=== PATIENT | male | born 2000 | race Two or more races ===

== ENCOUNTER → 2024-07-18 | Outpatient (CLI) | payer OTHER ==
[~2024-07-18] MED LIST: ISOVUE-300 61% 100ML VIAL As Ordered ONE; LIDOCAINE 1% MDV 20ML VIAL As Ordered ONE; PROHANCE 279.3MG/ML 5ML VIAL As Ordered ONE
== END ==
LOC: M RAD 09:00
PROVIDERS: ATTEND Physician Assistant Surgical
DX: M24.111 Other articular cartilage disorders, right shoulder (principal); S46.011A Strain of muscle(s) and tendon(s) of the rotator cuff of right shoulder, initial encounter; X58.XXXA Exposure to other specified factors, initial encounter; Y92.9 Unspecified place or not applicable
CPT/HCPCS: 23350; 73223; 77002; A9576; Q9967

== ENCOUNTER 2024-08-04 04:57 | Inpatient (IN) | payer OTHER ==
[~2024-08-04] VITALS: Ht 172.7 cm; Wt 77.5 kg
[2024-08-04 05:46] LABS: CARBOXYHEMOGLOBIN 1.5 % (0.0-1.5); VENOUS BASE EXCESS -1.2 (-2.0-2.0); VENOUS HCO3 23.5 MMOL/L (23.0-27.0); VENOUS O2 SATURATION 97.6 % (60.0-80.0); VENOUS PARTIAL PRESSURE CO2 39.6 mmHg (38.0-50.0); VENOUS PARTIAL PRESSURE O2 104.6 mmHg (30.0-50.0); VENOUS PH 7.392 UNITS (7.330-7.430); VENOUS STANDARD HCO3 23.5 MMOL/L; VENOUS TOTAL CO2 24.8 MMOL/L (24.0-28.0)
[2024-08-04 05:51] LABS: HEMOGLOBIN 15.3 g/dl (13.5-17.5); MEAN CORPUSCULAR HEMOGLOBIN 30.1 pg (27.0-33.0); MEAN CORPUSCULAR HGB CONC 34.8 g/dl (32.0-36.5); MEAN CORPUSCULAR VOLUME 86.6 fl (80.0-96.0); PLATELET COUNT, AUTOMATED 239 10^3/uL (150-450); RED BLOOD COUNT 5.08 10^6/uL (4.30-6.10); WHITE BLOOD COUNT 5.5 10^3/uL (4.0-10.0)
[2024-08-04 06:33] LABS: ETHYL ALCOHOL (ETHANOL) < 0.003 % (0.000-0.010)
[2024-08-04 06:34] LABS: ALBUMIN 4.4 G/DL (3.2-5.2); ALKALINE PHOSPHATASE 50 U/L (40-129); ALT/SGPT 19 U/L (7.0-40); AST/SGOT 8 U/L (<34); BILIRUBIN,DIRECT 0.3 MG/DL (<0.4); BLOOD UREA NITROGEN 12 MG/DL (9-23); CALCIUM LEVEL 9.3 MG/DL (8.5-10.1); CARBON DIOXIDE LEVEL 25 MMOL/L (20-31); CHLORIDE LEVEL 106 MMOL/L (98-107); CREATININE FOR GFR 0.89 MG/DL (0.70-1.30); GLOMERULAR FILTRATION RATE > 60.0 (>60); GLUCOSE, FASTING 89 MG/DL (60-100); POTASSIUM SERUM 3.8 MMOL/L (3.5-5.1); SALICYLATE LEVEL < 3.0 MG/DL (<30); SODIUM LEVEL 141 MMOL/L (136-145); TOTAL PROTEIN 6.9 G/DL (5.7-8.2)
[2024-08-04 06:36] LABS: THYROID STIMULATING HORMONE 4.294 uIU/ML (0.55-4.78)
[2024-08-04] MEDS ORDERED: HOME MED LIST COMPLETE! XX SCH (07:20)
[2024-08-04 07:50] LABS: AMPHETAMINES LEVEL URINE NEGATIVE (NEGATIVE)
[2024-08-04 07:51] LABS: BARBITURATES URINE NEGATIVE (NEGATIVE); BENZODIAZEPINES URINE NEGATIVE (NEGATIVE); CANNABINOIDS URINE NEGATIVE (NEGATIVE); COCAINE METABOLITE URINE NEGATIVE (NEGATIVE); METHADONE URINE NEGATIVE (NEGATIVE); OPIATES URINE NEGATIVE (NEGATIVE); PHENCYCLIDINE URINE NEGATIVE (NEGATIVE)
[2024-08-04 20:08] LABS: APPEARANCE, URINE CLEAR (CLEAR); BACTERIA, URINE AUTO NEGATIVE (NEGATIVE); BILIRUBIN, URINE AUTO NEGATIVE (NEGATIVE); BLOOD, URINE BLOOD NEGATIVE (NEGATIVE); COLOR, URINE YELLOW (YELLOW); GLUCOSE, URINE (UA) AUTO NEGATIVE (NEGATIVE); KETONE, URINE AUTO NEGATIVE (NEGATIVE); LEUKOCYTE ESTERASE, URINE AUTO NEGATIVE (NEGATIVE); MUCUS, URINE SMALL (NEGATIVE); NITRITE, URINE AUTO NEGATIVE (NEGATIVE); PROTEIN, URINE AUTO NEGATIVE (NEGATIVE); RBC, URINE AUTO 0 /HPF (0-3); SPECIFIC GRAVITY URINE AUTO 1.018 (1.002-1.035); SQUAMOUS EPITHELIAL CELL UR AU 0 /HPF (0-6); UROBILINOGEN, URINE AUTO 0.2 mg/dL (0.0-2.0); WBC, URINE AUTO 1 /HPF (0-3)
[2024-08-05] MEDS ORDERED: MAALOX 30 ML SUSP *UDC PO PRN (16:20)
[2024-08-05] MEDS ORDERED: LORazepam 1 MG TAB PO PRN (16:20)
[2024-08-05] MEDS ORDERED: MOM 30ML SUSPENSION UDC PO PRN (16:20)
[2024-08-05] MEDS ORDERED: ACETAMINOPHEN 325 MG TAB PO PRN (16:20)
[2024-08-05 18:55] VITALS: BP 118/69; TEMP 98.4; O2SAT 100
[2024-08-06 06:37] VITALS: BP 118/64; TEMP 97.9; O2SAT 100
[2024-08-06] MEDS: NICOTINE 14 MG/24 HR TRANSDERMAL TD SCH (09:13)
[2024-08-06 15:27] VITALS: BP 120/70; TEMP 97.9; O2SAT 96
[2024-08-06] MEDS: ESCITALOPRAM OXALATE 5MG TABLET (LEXAPRO) PO ONE (17:28)
[2024-08-06] MEDS: traZODone 50 MG TAB PO PRN (20:31)
[2024-08-07 06:40] VITALS: BP 128/88; TEMP 96.6; O2SAT 98
[2024-08-07] MEDS: ESCITALOPRAM OXALATE 10 MG TAB (LEXAPRO) PO SCH (09:13)
[2024-08-07] MEDS ORDERED: LORazepam 0.5 MG TAB PO PRN (14:50)
[2024-08-07 15:41] VITALS: BP 117/71; TEMP 98; O2SAT 99
[2024-08-07] MEDS: diphenhydrAMINE 25MG CAP PO PRN (20:58)
[2024-08-08 06:32] VITALS: BP 126/76; TEMP 97.6; O2SAT 99
[2024-08-08] MEDS ORDERED: traZODone 25MG PER 1/2 TABLET PO PRN (08:30)
[2024-08-08] MEDS: OLANZapine 5 MG TAB PO PRN (08:50)
[2024-08-08 15:23] VITALS: BP 111/63; TEMP 97.7; O2SAT 97
[2024-08-09 06:22] VITALS: BP 129/78; TEMP 96.9; O2SAT 100
[2024-08-09] MEDS ORDERED: LEXA1TAB PO (08:19)
[2024-08-09] MEDS ORDERED: HYDR-643 PO (08:19)
[2024-08-09] MEDS ORDERED: TRAZ1TAB11 PO (08:19)
== END 2024-08-09 09:30 | disposition home or self-care (01) | DRG 885 ==
LOC: M ED 04:57 → M ED INP 08-05 16:16 → M PSY 08-05 17:15
PROVIDERS: ADMIT Internal Medicine; ATTEND Psychiatry & Neurology Psychiatry
DX: F33.2 Major depressive disorder, recurrent severe without psychotic features (principal); F10.10 Alcohol abuse, uncomplicated; F41.9 Anxiety disorder, unspecified; Z91.51 Personal history of suicidal behavior

== ENCOUNTER → 2024-09-22 | Outpatient (CLI) | payer OTHER ==
[~2024-09-22] MED LIST changes: +HYDR-643 PO; -ISOVUE-300 61% 100ML VIAL As Ordered ONE; +LEXA1TAB PO; -LIDOCAINE 1% MDV 20ML VIAL As Ordered ONE; -PROHANCE 279.3MG/ML 5ML VIAL As Ordered ONE; +TRAZ1TAB11 PO
== END ==
LOC: M RAD 07:25
PROVIDERS: ATTEND Orthopaedic Surgery
DX: M24.111 Other articular cartilage disorders, right shoulder (principal)